=== PATIENT | female | born 1995 | race Two or more races ===

== ENCOUNTER → 2020-03-11 | Emergency (ER) | payer MEDICAID, OTHER ==
[~2020-03-11] VITALS: Ht 154.9 cm; Wt 59.9 kg
[~2020-03-11] MED LIST: MORPHINE SULFATE 4 MG/ML SYR/VIAL IV ONE; PANTOPRAZOLE 40 MG/10 ML VIAL INJ IV STA; PROCHLORPERAZINE EDISYLATE 5 MG/ML 2ML VIAL IV ONE; SODIUM CHLORIDE 0.9% 1,000 ML IVB ONE
[2020-03-11 10:30] LABS: Urine Bacteria MOD /hpf (None Seen); Urine Blood Negative /uL (Negative); Urine Specific Gravity 1.003 (1.001-1.035); Urine WBC 1 /hpf (0 - 5)
[2020-03-11 10:35] LABS: Basophils # (auto) 0 10 ^3/uL (0-0.2); Basophils % (auto) 0.3 % (0.0-2.0); Eosinophils # (auto) 0.1 10 ^3/uL (0-0.8); Eosinophils % (auto) 0.6 % (0.0-7.0); Hematocrit 41.6 % (36.0-46.0); Lymphocytes # (auto) 2.1 10 ^3/uL (0.4-5.4); Lymphocytes % (auto) 20.1 % (10.0-50.0); Mean Corpuscular Hemoglobin 28.8 pg (28.0-32.0); Mean Corpuscular Hgb Conc. 33.7 g/dL (32.0-36.0); Mean Corpuscular Volume 85.5 fL (80.0-100.0); Monocytes # (auto) 0.6 10 ^3/uL (0-1.3); Neutrophils # (auto) 7.7 10 ^3/uL (1.6-8.6); Nucleated Red Blood Cells % 0.1 %; Platelet Count (auto) 273 10^3/uL (140-450); Red Blood Cells 4.87 10^6/uL (4.0-5.20); Red Cell Distribution Width 13.7 % (11.8-14.3); White Blood Cell 10.6 10^3/uL (4.4-10.8)
[2020-03-11 10:44] LABS: Albumin 4.4 g/dL (3.4-5.0); Calcium 9.3 mg/dL (8.5-10.1); Potassium 3.6 mmol/L (3.5-5.1)
[2020-03-11 10:49] LABS: BUN/Creatinine Ratio 9.7; Bilirubin, Total 0.4 mg/dL (0.2-1.0); Total Protein 7.7 g/dL (6.4-8.2)
[2020-03-11 11:37] LABS: Alcohol, Urine < 3.0 mg/dL (0-10); Amphetamine Screen, Urine NEGATIVE (NEGATIVE); Barbiturate Scree,Urine NEGATIVE (NEGATIVE); Benzodiazephine Screen, Urine NEGATIVE (NEGATIVE); Cannabinoid Screen, Urine NEGATIVE (NEGATIVE); Cocaine Screen, Urine NEGATIVE (NEGATIVE); Opiate Scree,Urine NEGATIVE (NEGATIVE); Phencyclidine Screen, Urine NEGATIVE (NEGATIVE)
[2020-03-11 12:10] VITALS: BP 97/47
== END | disposition home or self-care (01) ==
LOC: ER 09:53
DX: K29.00 Acute gastritis without bleeding (principal)
CPT/HCPCS: 36415; 76705; 80053; 80307; 81001; 81025; 82150; 83690; 85025; 96361; 96374; 96375; 99284; C9113; J0780; J2270

== ENCOUNTER 2023-04-11 23:19 | Inpatient (IN) | payer MEDICAID ==
[~2023-04-11] VITALS: Ht 154.9 cm; Wt 58.6 kg
[2023-04-11] MEDS ORDERED: DONNATAL 5ml ORAL Elix (BELLADONNA ALK-PHENOBARB) PO ONE (23:45)
[2023-04-11] MEDS ORDERED: ONDANSETRON HCL 4 MG/2 ML VIAL IM ONE (23:45)
[2023-04-11] MEDS ORDERED: MAALOX PLUS or MAALOX 30 ML PO ONE (23:45)
[2023-04-11] MEDS ORDERED: LIDOCAINE VISCOUS 2% 15ML UD PO ONE (23:45)
[2023-04-11 23:57] LABS: Basophils # (auto) 0.1 10 ^3/uL (0-0.2); Basophils % (auto) 0.5 % (0.0-2.0); Eosinophils # (auto) 0.1 10 ^3/uL (0-0.8); Eosinophils % (auto) 0.5 % (0.0-7.0); Hematocrit 43.9 % (36.0-46.0); Lymphocytes # (auto) 2.5 10 ^3/uL (0.4-5.4); Lymphocytes % (auto) 16.1 % (10.0-50.0); Mean Corpuscular Hemoglobin 29.1 pg (28.0-32.0); Mean Corpuscular Hgb Conc. 34.2 g/dL (32.0-36.0); Mean Corpuscular Volume 85.2 fL (80.0-100.0); Monocytes # (auto) 0.8 10 ^3/uL (0-1.3); Neutrophils # (auto) 12.1 10 ^3/uL (1.6-8.6); Neutrophils % (auto) 77.9 % (37.0-80.0); Nucleated Red Blood Cells % 0.1 %; Red Blood Cells 5.15 10^6/uL (4.0-5.20); Red Cell Distribution Width 13.6 % (11.8-14.3); White Blood Cell 15.6 10^3/uL (4.4-10.8)
[2023-04-12 00:17] LABS: Alanine Aminotransferase 16 U/L (7-40); Alkaline Phosphatase 64 U/L (46-116); Anion Gap 11 (5-15); Aspartate Aminotransferase 17 U/L (13-40); BUN/Creatinine Ratio 10.3 (10.0-20.0); Bilirubin, Total 0.9 mg/dL (0.2-1.0); Blood Urea Nitrogen 7 mg/dL (9-23); Calcium 10.2 mg/dL (8.7-10.4); Carbon Dioxide 21 mmol/L (20-30); Chloride 106 mmol/L (98-107); Glucose 108 mg/dL (74-106); Lipase 58 U/L (12-53); Potassium 3.4 mmol/L (3.5-5.1); Sodium 138 mmol/L (136-145); Total Protein 7.9 g/dL (5.7-8.2)
[2023-04-12] MEDS ORDERED: MORPHINE SULFATE 4 MG/ML SYR/VIAL IV ONE ×2 (00:30→05:15)
[2023-04-12] MEDS ORDERED: ONDANSETRON HCL 4 MG/2 ML VIAL IV ONE (00:30)
[2023-04-12 01:30] VITALS: PULSE 80; RESP 18; O2SAT 98
[2023-04-12] MEDS ORDERED: HYDROmorphone HCL 2 MG/ML VL/or syr IV ONE (01:45)
[2023-04-12] MEDS ORDERED: SODIUM CHLORIDE 0.9% 1,000 ML IV ONE (01:45)
[2023-04-12 01:48] LABS: Urine Bacteria MANY /hpf (None Seen); Urine Blood Negative /uL (Negative); Urine Clarity Clear (Clear); Urine Color Yellow (Yellow); Urine Mucus FEW (None Seen); Urine Protein, UAD TRACE (Negative); Urine Specific Gravity 1.029 (1.001-1.035); Urine Urobilinogen Normal (Negative); Urine WBC 20 /hpf (0 - 5)
[2023-04-12] MEDS ORDERED: ZOFR4T PO ×2 (03:25)
[2023-04-12] MEDS ORDERED: DICY10CA PO ×2 (03:25)
[2023-04-12] MEDS ORDERED: PIPERACILLIN-TAZOB 3.375GM 100 ML IV ONE (05:15)
[2023-04-12] MEDS ORDERED: ONDANSETRON HCL 4 MG/2 ML VIAL IV PRN (06:30)
[2023-04-12 07:15] LABS: INR 1.14 (0.9-1.15); Partial Thromboplastin Time 28.6 SEC (24.5-34.5); Prothrombin Time 11.9 sec (9.3-11.8)
[2023-04-12 08:00] VITALS: PULSE 78; RESP 15; O2SAT 100
[2023-04-12] MEDS: SODIUM CHLORIDE 0.9% 1,000 ML IV SCH ×2 (08:54→17:53)
[2023-04-12] MEDS: PIPERACILLIN-TAZOB 3.375GM 100 ML IV SCH ×2 (11:47→17:53)
[2023-04-12] MEDS: MORPHINE SULFATE INJ 2 MG/ml SYRG IV PRN ×2 (11:57→16:07)
[2023-04-12 16:01] VITALS: BP 107/64; PULSE 84; RESP 16; TEMP 98.2; O2SAT 100
[2023-04-12 16:05] VITALS: PULSE 87; RESP 20; O2SAT 100
[2023-04-12 16:44] VITALS: BP 107/64; PULSE 87; RESP 20; TEMP 99.7; O2SAT 100
[2023-04-13 23:06] LABS: Chlamydia Trachomatis, NAA Negative (Negative); Neisseria gonorrhoeae, NAA Negative (Negative)
== END 2023-04-12 18:45 | disposition left against medical advice (07) | DRG 254 ==
LOC: ER 23:19 → OVERFLOW 04-12 06:32 → WEST WING 04-12 15:09
PROVIDERS: ADMIT Nurse Practitioner; ATTEND Internal Medicine
DX: K35.80 Unspecified acute appendicitis (principal); E66.01 Morbid (severe) obesity due to excess calories; K29.00 Acute gastritis without bleeding; N39.0 Urinary tract infection, site not specified; K21.9 Gastro-esophageal reflux disease without esophagitis; R10.829 Rebound abdominal tenderness, unspecified site; Z53.29 Procedure and treatment not carried out because of patient's decision for other reasons; Z82.49 Family history of ischemic heart disease and other diseases of the circulatory system; Z87.11 Personal history of peptic ulcer disease; Z68.24 Body mass index [BMI] 24.0-24.9, adult
CPT/HCPCS: 36415; 74177; 76830; 76856; 80053; 81001; 83690; 84702; 85025; 85610; 85730; G0378; J2405; J2543

== ENCOUNTER → 2024-11-12 | Outpatient (CLI) | payer MEDICAID ==
[2024-11-12 11:01] LABS: Hematocrit 36.8 % (36.0-46.0); Hemoglobin 12.5 g/dL (12.2-16.2); Mean Corpuscular Hemoglobin 28.8 pg (28.0-32.0); Mean Corpuscular Hgb Conc. 34.1 g/dL (32.0-36.0); Mean Corpuscular Volume 84.6 fL (80.0-100.0); Platelet Count (auto) 210 10^3/uL (140-450); Red Blood Cells 4.36 10^6/uL (4.0-5.20); White Blood Cell 10.1 10^3/uL (4.4-10.8)
[2024-11-12 11:43] LABS: Basophils % (manual) 0 (0.0-2.0); Blast Cells 0; Eosinophils % (manual) 0 (0-7); Metamyelocytes % 0; Myelocytes % 0; Promyelocytes % 0; Reactive Lymphocytes 0
[2024-11-12 11:47] LABS: Band Neutrophils % (manual) 1; Lymphocytes % (manual) 11 (10.0-50.0); Monocytes % (manual) 9 (0-12)
[2024-11-12 11:48] LABS: Platelet Estimate Adequate
[2024-11-13 23:07] LABS: Chlamydia Trachomatis, NAA Negative (Negative); Neisseria gonorrhoeae, NAA Negative (Negative)
== END | disposition home or self-care (01) ==
LOC: LAB 10:20
PROVIDERS: ATTEND Obstetrics & Gynecology
DX: Z34.00 Encounter for supervision of normal first pregnancy, unspecified trimester (principal); Z72.51 High risk heterosexual behavior; Z3A.00 Weeks of gestation of pregnancy not specified
CPT/HCPCS: 36415; 85007; 85027; 86780

== ENCOUNTER 2024-11-21 18:48 | Observation (INO) | payer MEDICAID ==
[2024-11-21] MEDS ORDERED: PREN-96 PO (19:34)
--- NOTE | 2024-11-21 19:39 | DVH ---
EXAM: US BIOPHYSICAL PROFILE HISTORY: ARRHYTHMIA COMPARISON: None TECHNIQUE: Multiple transabdominal real-time grayscale sonographic images through the gravid uterus of the fetus with duplex Doppler color flow and M-mode spectral analysis Findings/Impression: Single live intrauterine in vertex presentation with heart rate of 129 bpm. Biophysical profile was performed with 2 points for respirations, 2 points for movement, 2 points for tone and 2 points for amniotic fluid index. Biophysical profile score of 8/8. Amniotic fluid is within normal limits with GISSEL 14.9 cm and MVP 4.3 cm. Normal GISSEL (5-25 cm) Normal MVP (2-8 cm)
--- NOTE | 2024-11-21 21:15 | DVHDS2 ---
Physician Discharge Progress N Final Diagnosis: IUP at 36w 4d Reactive NST Normal Biophysical Profile (02/21) Operations or Procedures: Operations or Procedures S: 29yo G1,[address] for surveillance for arrhythmia. She reports normal movements, no UCs, no leakage of fluid, vaginal bleeding, MARTINS, vision changes or epigastric pain O: A&O x3 NAD. Afebrile, VSS Respiration: unlabored heart and lung sounds normal. Abdomen: Gravid, non-tender to palpation Extremities: No edema EFM Tracing reviewed FHR baseline 135bpm, moderate variability, Accelerations present, no deceleration BPP 02/21 NST reactive A: Normal BPP Reactive NST P: Continue Ursodiol and surveillance 1x/week (per consult with Dr Soriano) Keep Scheduled appt with MFM on 11/26/24, OB follow appointment with Dr Soriano on 11/27/24, Return for NST in 1 week; advised to seek healthcare sooner if needed. 3rd trimester emergency S&S, FMC, PTL & pre-eclampsia precautions reviewed with pt; advised to seek health care if any Consultations: Consultations Consulted with Dr. Soriano regarding frequency of surveillance. Condition on Discharge: Stable Disposition: Home Discharge Instructions: Diet: Regular Diet comment: Balanced diet Activity: No Restrictions, As Tolerated Activity comment: Balance activity with rest periods Follow Up/Referral: KEEP CURRENT APPOINTMENT WITH DR SORIANO. RETURN TO [facility] FOR NON-STRESS TEST AND ULTRASOUND ON 11/28/24 AT 7PM Medications: CONTINUE TAKING VITAMINS DAILY. Follow Up Care: Discharge Statement: "Patient was advised to return to the ER or call 911 if any headaches, dizziness, shortness of breath, chest pain, abdominal pain, bleeding, fevers, or worsening of medical condition. Patient was counseled about treatment plan, medications, possible side effects, patient�verbalized understanding. All questions were answered to the best of my ability. This discharge took greater then 30 minutes in planning, reviewing documentation, counseling the patient, and discussing with other team members." Visit Coding OBGYN Date of Service: November 21, 2024 Billing Provider: ARLEY SERRANO CNM STRAW HAT PLUNGER OPERATOR Common Visit Codes: 47628-SQF/OBS SAME DATE (HIGH) STRAW HAT PLUNGER OPERATOR Procedure Codes: 74421-19- NON-STRESS TEST ARLEY SERRANO [facility] November 21, 2024 21:15
== END 2024-11-21 20:54 | disposition home or self-care (01) ==
LOC: LDRP 18:48
PROVIDERS: ADMIT Obstetrics & Gynecology; ATTEND Obstetrics & Gynecology
DX: O62.9 Abnormality of forces of labor, unspecified (principal); Z3A.36 36 weeks gestation of pregnancy; Z79.899 Other long term (current) drug therapy; Z98.890 Other specified postprocedural states
CPT/HCPCS: 59025; 76819; 81002; 94760; G0378

== ENCOUNTER 2024-11-28 18:40 | Observation (INO) | payer MEDICAID ==
[~2024-11-28] VITALS: Ht 154.9 cm; Wt 83.0 kg
[~2024-11-28 18:40] MED LIST changes: -MORPHINE SULFATE 4 MG/ML SYR/VIAL IV ONE; -PANTOPRAZOLE 40 MG/10 ML VIAL INJ IV STA; +PREN-96 PO; -PROCHLORPERAZINE EDISYLATE 5 MG/ML 2ML VIAL IV ONE; -SODIUM CHLORIDE 0.9% 1,000 ML IVB ONE
--- NOTE | 2024-11-28 19:25 | DVH ---
ULTRASOUND BIOPHYSICAL PROFILE CLINICAL HISTORY: arrhythmias COMPARISON: US BIOPHYSICAL PROFILE on DOS: 11/21/24 TECHNIQUE: Real-time grayscale, color flow and M-mode imaging of the gravid uterus is performed. FINDINGS: Single living intrauterine gestation. Vertex positioning. heart rate 127 beats per minute. Amniotic fluid index: 12.3 cm Biophysical profile: 8 out of 8. (2 breathing, 2 activity, 2 tone, 2 GISSEL) IMPRESSION: Biophysical profile score 8 out of 8.
--- NOTE | 2024-12-05 12:25 | DVHDS2 ---
Physician Discharge Progress N Final Diagnosis: labor check Operations or Procedures: Operations or Procedures nst reactive reviewed,sono Condition on Discharge: Good Disposition: Home Discharge Instructions: Diet: Regular Activity: See Comment Medications: na Follow Up Care: Specialist: 3d Discharge Statement: "Patient was advised to return to the ER or call 911 if any headaches, dizziness, shortness of breath, chest pain, abdominal pain, bleeding, fevers, or worsening of medical condition. Patient was counseled about treatment plan, medications, possible side effects, patientverbalized understanding. All questions were answered to the best of my ability. This discharge took greater then 30 minutes in planning, reviewing documentation, counseling the patient, and discussing with other team members." Visit Coding OBGYN Date of Service: November 28, 2024 Billing Provider: GUNNER MICHEL DO QUARTER INSPECTOR Common Visit Codes: 29607-[id number] OBS CARE (HIGH) QUARTER INSPECTOR Procedure Codes: 88910-75- NON-STRESS TEST GUNNER MICHEL DO December 05, 2024 12:25
== END 2024-11-28 19:49 | disposition home or self-care (01) ==
LOC: LDRP 18:40
PROVIDERS: ADMIT Obstetrics & Gynecology; ATTEND Obstetrics & Gynecology
DX: Z36.89 Encounter for other specified antenatal screening (principal); Z3A.37 37 weeks gestation of pregnancy; Z79.899 Other long term (current) drug therapy
CPT/HCPCS: 59025; 76819; 81002; 94760; G0378

== ENCOUNTER 2024-12-05 18:40 | Observation (INO) | payer MEDICAID ==
[~2024-12-05] VITALS: Ht 154.9 cm; Wt 83.5 kg
--- NOTE | 2024-12-05 19:23 | DVH ---
BIOPHYSICAL PROFILE HISTORY: arrhythmia Comparison Study: US BIOPHYSICAL PROFILE on DOS: 11/28/24 TECHNIQUE: Multiple real-time grayscale sonographic images through the gravid uterus of the fetus wi th duplex Doppler color flow and M-mode spectral analysis FINDINGS: Heart rate measures 132 beats per minute. Amniotic fluid index measures 11.21 cm. Gestational age ca lculating at 38 weeks and 3 days with estimated due date 12/16/24. position vertex Right lateral placenta location. No placenta previa or abruption. Normal biophysical profile score. IMPRESSION: 1. Biophysical profile score: 8
--- NOTE | 2024-12-05 20:45 | DVHDS2 ---
Physician Discharge Progress N Final Diagnosis: IUP at 38.3 weeks Secondary Diagnosis: NST for arrythmia Operations or Procedures: Operations or Procedures NST: Reactive Category 1 tracing Other Interventions Other Interventions BPP: 02/21 with an GISSEL of 11.21 cm Commentary: Commentary Denies any problems or complaints. VE: Deferred Condition on Discharge: Stable Disposition: Home Discharge Instructions: Diet: Regular Activity: No Restrictions, As Tolerated Follow Up/Referral: Keep regular clinic appt as scheduled Medications: Continue all previously prescribed meds as ordered Follow Up Care: Primary Care Provider: Dr Soriano Discharge Statement: "Patient was advised to return to the ER or call 911 if any headaches, dizziness, shortness of breath, chest pain, abdominal pain, bleeding, fevers, or worsening of medical condition. Patient was counseled about treatment plan, medications, possible side effects, patientverbalized understanding. All questions were answered to the best of my ability. This discharge took greater then 30 minutes in planning, reviewing documentation, counseling the patient, and discussing with other team members." Discharge Care Plan Instructions Labor precautions and FKC instructions given Visit Coding OBGYN Date of Service: December 05, 2024 Billing Provider: WALI HYDE CNM FLAT DRIER Common Visit Codes: [id number] CARE DISCHARGE WALI HYDE CNM December 05, 2024 20:45
== END 2024-12-05 19:47 | disposition home or self-care (01) ==
LOC: LDRP 18:40
PROVIDERS: ADMIT Obstetrics & Gynecology; ATTEND Obstetrics & Gynecology
DX: O99.413 Diseases of the circulatory system complicating pregnancy, third trimester (principal); Z3A.38 38 weeks gestation of pregnancy; Z79.899 Other long term (current) drug therapy
CPT/HCPCS: 59025; 76819; 81002; 94760; G0378

== ENCOUNTER 2024-12-08 17:55 | Observation (INO) | payer MEDICAID ==
[~2024-12-08] VITALS: Ht 154.9 cm; Wt 83.5 kg
--- NOTE | 2024-12-09 05:48 | DVHDS2 ---
Discharge Summary Date of Admission December 08, 2024 at 17:55 Date of Discharge: December 08, 2024 Admitting Diagnosis Patient here for evaluation secondary to decreased movement Brief Hx & Hospital Course: 38-6/7 weeks with care here for they thank you Condition at Discharge: Fair Final Diagnosis/Problems List Reassuring heart tones 30+ weeks due with history of a regular heart rate thankfollow up Discharge Disposition: Home Discharge Instruct/Medications Diet: Regular Activity: Light activity (Kick counts labor precautions) Follow Up/Referral: As scheduled Discharge Statement: "Patient was advised to return to the ER or call 911 if any headaches, dizziness, shortness of breath, chest pain, abdominal pain, bleeding, fevers, or worsening of medical condition. Patient was counseled about treatment plan, medications, possible side effects, patientverbalized understanding. All questions were answered to the best of my ability. This discharge took greater then 30 minutes in planning, reviewing documentation, counseling the patient, and discussing with other team members." ASSESSMENT ASSESSMENT Assessment Visit Coding OBGYN Date of Service: December 08, 2024 Billing Provider: DANAY ANGULO DO WEATHERIZATION AND HOUSING INSPECTOR Common Visit Codes: 73296-BNF/OBS SAME DATE (LOW), 14079-VSJ/OBS SAME DATE (MOD), 35498-FJR/OBS SAME DATE (HIGH) WEATHERIZATION AND HOUSING INSPECTOR Procedure Codes: 05007-24- NON-STRESS TEST DANAY ANGULO DO December 09, 2024 05:48
== END 2024-12-08 18:48 | disposition home or self-care (01) ==
LOC: LDRP 17:55
PROVIDERS: ADMIT Obstetrics & Gynecology; ATTEND Obstetrics & Gynecology
DX: O36.8130 Decreased fetal movements, third trimester, not applicable or unspecified (principal); O99.413 Diseases of the circulatory system complicating pregnancy, third trimester; Z3A.38 38 weeks gestation of pregnancy; Z79.899 Other long term (current) drug therapy
CPT/HCPCS: 59025; 81002; 94760; G0378

== ENCOUNTER 2024-12-12 18:33 | Observation (INO) | payer MEDICAID ==
[~2024-12-12] VITALS: Ht 154.9 cm; Wt 84.4 kg
--- NOTE | 2024-12-12 19:14 | DVH ---
BIOPHYSICAL PROFILE HISTORY: arrhythmia TECHNIQUE: Multiple transabdominal real-time grayscale sonographic images through the gravid uterus of the fetus with duplex Doppler color flow and M-mode spectral analysis FINDINGS: BIOPHYSICAL PROFILE: breathing score: 2 movement score: 2 tone score: 2 Quantitative GISSEL score: 2 (GISSEL: 12.8 Cm.) Total score: 8 The cervix not well visualized. Single live fetus in vertex presentation. heart rate 138 beats per minute. Right lateral placenta without previa or abruption IMPRESSION: Biophysical profile score: 8
--- NOTE | 2024-12-13 22:38 | DVHDS2 ---
Physician Discharge Progress N Final Diagnosis: arryhtmia 39wks Operations or Procedures: Operations or Procedures nst reactive reviwed,sono Condition on Discharge: Good Disposition: Home Discharge Instructions: Diet: Regular Activity: No Restrictions, As Tolerated Medications: na Follow Up Care: Specialist: 3d Discharge Statement: "Patient was advised to return to the ER or call 911 if any headaches, dizziness, shortness of breath, chest pain, abdominal pain, bleeding, fevers, or worsening of medical condition. Patient was counseled about treatment plan, medications, possible side effects, patientverbalized understanding. All questions were answered to the best of my ability. This discharge took greater then 30 minutes in planning, reviewing documentation, counseling the patient, and discussing with other team members." Visit Coding OBGYN Date of Service: December 12, 2024 Billing Provider: GUNNER MICHEL DO PHOTO SPECIALIST Common Visit Codes: [id number] OBS CARE (HIGH) PHOTO SPECIALIST Procedure Codes: 44849-77- NON-STRESS TEST GUNNER MICHEL DO December 13, 2024 22:38
== END 2024-12-12 19:42 | disposition home or self-care (01) ==
LOC: LDRP 18:33
PROVIDERS: ADMIT Obstetrics & Gynecology; ATTEND Obstetrics & Gynecology
DX: O36.8330 Maternal care for abnormalities of the fetal heart rate or rhythm, third trimester, not applicable or unspecified (principal); Z3A.39 39 weeks gestation of pregnancy; Z79.899 Other long term (current) drug therapy
CPT/HCPCS: 59025; 76819; 81002; 94760; G0378

== ENCOUNTER 2024-12-16 07:16 | Observation (INO) | payer MEDICAID ==
--- NOTE | 2024-12-16 14:16 | DVH ---
BIOPHYSICAL PROFILE HISTORY: Term, arrythmia TECHNIQUE: Multiple transabdominal real-time grayscale sonographic images through the gravid uterus of the fetus with duplex Doppler color flow and M-mode spectral analysis FINDINGS: BIOPHYSICAL PROFILE: breathing score: 2 movement score: 2 tone score: 2 Quantitative GISSEL score: 2 (GISSEL: 18.8 Cm.) Total score: 8 The cervix not well visualized. Single live fetus in cephalic presentation. heart rate 138 beats per minute. Right lateral placenta without previa or abruption IMPRESSION: Biophysical profile score: 8/8
--- NOTE | 2024-12-16 23:58 | DVHDS2 ---
Physician Discharge Progress N Final Diagnosis: arrythmia 40wks Operations or Procedures: Operations or Procedures nst reactive reviwed,sono Condition on Discharge: Good Disposition: Home Discharge Instructions: Diet: Regular Activity: No Restrictions, As Tolerated Medications: na Follow Up Care: Specialist: 2d Discharge Statement: "Patient was advised to return to the ER or call 911 if any headaches, dizziness, shortness of breath, chest pain, abdominal pain, bleeding, fevers, or worsening of medical condition. Patient was counseled about treatment plan, medications, possible side effects, patientverbalized understanding. All questions were answered to the best of my ability. This discharge took greater then 30 minutes in planning, reviewing documentation, counseling the patient, and discussing with other team members." Visit Coding OBGYN Date of Service: Dec 16, 2024 Billing Provider: GUNNER MICHEL DO VERIFICATION ENGINEER Common Visit Codes: 97631-ASLDSEE OBS CARE (HIGH) VERIFICATION ENGINEER Procedure Codes: 53958-16- NON-STRESS TEST GUNNER MICHEL DO Dec 16, 2024 23:58
== END 2024-12-16 14:56 | disposition home or self-care (01) ==
LOC: LDRP 13:18
PROVIDERS: ADMIT Obstetrics & Gynecology; ATTEND Obstetrics & Gynecology
DX: O36.8130 Decreased fetal movements, third trimester, not applicable or unspecified (principal); Z3A.40 40 weeks gestation of pregnancy; Z79.899 Other long term (current) drug therapy; Z98.890 Other specified postprocedural states
CPT/HCPCS: 59025; 76819; 81002; 94760; G0378

== ENCOUNTER 2024-12-17 18:30 | Inpatient (IN) | payer MEDICAID ==
[~2024-12-17] VITALS: Ht 154.9 cm; Wt 86.2 kg
[2024-12-17] MEDS ORDERED: NALBUPHINE HCL 10 MG/1ml INJECTION IV PRN (19:15)
[2024-12-17] MEDS ORDERED: miSOPROStol 50 MCG per PRE-CUT 1/2 TAB PO PRN (19:15)
[2024-12-17 19:45] LABS: Basophils # (auto) 0 10 ^3/uL (0-0.2); Basophils % (auto) 0.2 % (0.0-2.0); Eosinophils # (auto) 0.1 10 ^3/uL (0-0.8); Eosinophils % (auto) 0.5 % (0.0-7.0); Hematocrit 36.7 % (36.0-46.0); Hemoglobin 12.3 g/dL (12.2-16.2); Lymphocytes # (auto) 1.5 10 ^3/uL (0.4-5.4); Mean Corpuscular Hemoglobin 28.5 pg (28.0-32.0); Mean Corpuscular Hgb Conc. 33.7 g/dL (32.0-36.0); Mean Corpuscular Volume 84.6 fL (80.0-100.0); Monocytes # (auto) 0.7 10 ^3/uL (0-1.3); Monocytes % (auto) 6.1 % (0.0-12.0); Neutrophils # (auto) 8.5 10 ^3/uL (1.6-8.6); Neutrophils % (auto) 79.2 % (37.0-80.0); Platelet Count (auto) 205 10^3/uL (140-450); Red Blood Cells 4.33 10^6/uL (4.0-5.20); Red Cell Distribution Width 15.7 % (11.8-14.3); White Blood Cell 10.7 10^3/uL (4.4-10.8)
[2024-12-17 19:57] LABS: Urine Bacteria FEW /hpf (None Seen); Urine Blood Negative /uL (Negative); Urine Clarity Turbid (Clear); Urine Color Yellow (Yellow); Urine Mucus FEW (None Seen); Urine Protein, UAD TRACE (Negative); Urine Squamous Epithelial Cell FEW /hpf (<5); Urine Urobilinogen Normal (Negative); Urine WBC 3 /HPF (0-5); Urine pH 6.5 (5.0-9.0)
[2024-12-17 19:59] LABS: INR 0.95 (0.9-1.15); Partial Thromboplastin Time 27.3 SEC (24.5-34.5); Prothrombin Time 10.1 sec (9.3-11.8)
[2024-12-17] MEDS ORDERED: TERBUTALINE SULFATE 1 MG/ML 1ML VIAL SC PRN (20:00)
[2024-12-17 20:02] LABS: Alanine Aminotransferase 18 U/L (7-40); Albumin 4.2 g/dL (3.2-4.8); Anion Gap 13 (5-15); Aspartate Aminotransferase 21 U/L (13-40); BUN/Creatinine Ratio 13.3 (10.0-20.0); Bilirubin, Total 0.4 mg/dL (0.2-1.0); Carbon Dioxide 20 mmol/L (20-31); Potassium 3.6 mmol/L (3.5-5.1); Sodium 141 mmol/L (136-145); Total Protein 6.6 g/dL (5.7-8.2)
[2024-12-17 20:03] LABS: Alkaline Phosphatase 194 U/L (46-116); Blood Urea Nitrogen 8 mg/dL (9-23); Calcium 10.5 mg/dL (8.7-10.4); Chloride 108 mmol/L (98-107); Glucose 110 mg/dL (74-106)
[2024-12-17 20:09] LABS: Amphetamine Screen, Urine Neg (NEGATIVE); Barbiturate Scree,Urine Neg (NEGATIVE); Benzodiazephine Screen, Urine Neg (NEGATIVE); Cannabinoid Screen, Urine Neg (NEGATIVE); Cocaine Screen, Urine Neg (NEGATIVE); Opiate Scree,Urine Neg (NEGATIVE); Phencyclidine Screen, Urine Neg (NEGATIVE)
[2024-12-17] MEDS: LACTATED RINGER'S 1,000 ML IV SCH (20:43)
[2024-12-17 21:07] LABS: Hepatitis B Surface Antigen Negative (Negative); Hepatitis C Antibody Negative (Negative)
[2024-12-17] MEDS: LACT. RINGERS/OXYTOCIN 20UNITS 1,000 ML IV SCH (21:42)
--- NOTE | 2024-12-17 21:56 | DVHHP2 ---
OB CC & HPI Date Date of Admission: Dec 17, 2024 Patient Identification: : 1 Para: 0 EDC: Dec 16, 2024 EGA: 40.1wks Chief Complaints: Reason for admission: induction of labor Indication for induction: post dates ( arrhythmia) History of Present Complaints 29yo IUP@40.1wks presents for scheduled IOL today. Denies UCs/LOF/VB/MARTINS/vision changes/RUQ pain. Endorses +FM. PNC: Routine PNC at [facility] OB, adequate visits, PNC complicated by arrhythmia. GTT wnl, dating based on LMP c/w 29w4d sono, GBS negative. Past Medical History Cardiac: No pertinent Hx Pulmonary: No pertinent Hx Central Nervous System: No pertinent Hx GI: No pertinent Hx Hemotology/Oncology: No pertinent Hx Hepatobiliary: No pertinent Hx Psychiatric: No pertinent Hx Musculoskeletal: No pertinent Hx Rheumotologic: No pertinent Hx Infectious Disease: No peritnent Hx ENT: No pertinent Hx Renal/: No pertinent Hx Endocrine: No pertinent Hx Dermatology: No pertinent Hx Past Surgical History: Appendectomy (2022) OB History OB History Care: Good Care Ultrasounds: Normal mid trimester US Obstetrical Complications: Other ( arrhythmia) Medical Complications: None Allergies: Coded Allergies: NO KNOWN ALLERGIES (Unverified , 03/11/20) Home Meds Reported Medications Vit W/ Ferrous Fumara ( One Daily) Daily Tab, 1 TAB PO DAILY, #90 TAB 3 Refills 11/21/24 Current Medications Current Medications Medications (Trade) Dose Ordered Sig/Amrik Route PRN Reason Start Time Stop Time Status Last Admin Lactated Ringer's 1,000 ml @ 125 mls/hr Q8H IV 12/17/24 19:15 12/17/24 20:43 Nalbuphine HCl (Nubain) 10 mg Q4HP PRN IV MODERATE PAIN (4-6 PAIN SCALE) 12/17/24 19:15 Witch Sanam (Tucks) 1 pad PRN PRN TOP PERINEAL AREA DISCOMFORT 12/17/24 19:15 Sodium Lauryl Sulfate (Phisoderm) 240 ml PRN PRN TOP PERINEAL AREA DISCOMFORT 12/17/24 19:15 Benzocaine (Dermoplast) 1 applic PRN PRN TOP PERINEAL AREA DISCOMFORT 12/17/24 19:15 Misoprostol (Cytotec) 50 mcg Q4HPRN PRN PO CERVICAL RIPENING 12/17/24 19:15 Lidocaine HCl (Xylocaine) 20 ml ONCE PRN IJ PERINEAL AREA DISCOMFORT 12/17/24 19:15 Oxytocin 1,000 ml @ 6 ml/hr Q24H IV 12/17/24 20:00 12/17/24 21:42 Terbutaline Sulfate (Brethine Inj) 0.25 mg ONCE PRN SC Uterine tachysystole 12/17/24 20:00 Family & Social History Family/Social History Past Family/Social History: mother: HTN Blood Type: O+ Rubella: immune RPR/VDRL: Negative GBS Status: Negative HBsAG: Negative Review of Systems Constitutional: No symptom reported Ears, Nose, & Throat: No symptom reported Eyes: No symptom reported Pulmonary/Respiratory: No symptom reported Cardiovascular: No symptom reported Gastrointestinal: No symptom reported Genitourinary: No symptom reported Musculoskeletal: No symptom reported Skin: No symptom reported Psychiatric: No symptom reported Endocrine: No symptom reported Hemotologic/Lymphatic: No symptom reported OB Admission Exam Physical Exam Vitals: VSS, see chart EFW in office today: 8lbs 13oz, vertex HEENT: TMs Normal, Fontanelles Normal, Nasal Mucosa Normal, Eyes non-injected, Oropharynx Normal, PERRLA, Moist Membranes, EOMI Heart: Rhythm Normal Lungs: Clear Abdomen: Gravid Extremities: Normal Reflexes: Normal Pelvic Exam: SVE by RN: 3/70/-2, intact, vertex Membranes: Intact Heart Rate: 120's Accelerations: Accelerations Present Decelerations: No Decelerations Senior Care Variability: Average (6-25) Contractions on Admission: < 5 Minutes Apart Intensity: Moderate OB Plan Plan Admitting Diagnosis: Induction of labor Plan: Induction Induction Methd: Pitocin protocol Other Plan: A: 29yo IUP@40.1wks Induction of Labor arrhythmia Category I EFM Intact Membranes GBS negative P: Admit to L&D Informed consent obtained Discussed risks, benefits, alternatives of IOL with pt. Pt consents to IOL with IV pitocin. monitoring per order Routine labs ordered Pain mgmt PRN Frequent position changes in and out of bed encouraged Limit SVE unless necessary Intrauterine resuscitation PRN Anticipate CNM will consult with Dr. Soriano PRN Visit Coding OBGYN Date of Service: Dec 18, 2024 Billing Provider: AVILA BRUCE CNM HEARING STENOGRAPHER Common Visit Codes: [id number] INP/OBS CARE (HIGH) HEARING STENOGRAPHER Procedure Codes: 91115-62- NON-STRESS TEST AVILA BRUCE CNM Dec 17, 2024 21:56
--- NOTE | 2024-12-18 02:15 | DVHPN2 ---
[facility] Labor Progress Note Date and Time Seen Date Seen: Dec 18, 2024 Time Seen: 02:10 Subjective Patient reports: No new complaints Subjective Comment Pt declines SVE now Objective Vital Signs VSS, see chart Laboratory Tests Test 12/17/24 19:20 Range/Units White Blood Count 10.7 4.4-10.8 10^3/uL Red Blood Count 4.33 4.0-5.20 10^6/uL Hemoglobin 12.3 12.2-16.2 g/dL Hematocrit 36.7 36.0-46.0 % Mean Corpuscular Volume 84.6 80.0-100.0 fL Mean Corpuscular Hemoglobin 28.5 28.0-32.0 pg Mean Corpuscular Hemoglobin Concent 33.7 32.0-36.0 g/dL Red Cell Distribution Width 15.7 H 11.8-14.3 % Platelet Count 205 140-450 10^3/uL Mean Platelet Volume 7.9 6.9-10.8 fL Neutrophils (%) (Auto) 79.2 37.0-80.0 % Lymphocytes (%) (Auto) 14.0 10.0-50.0 % Monocytes (%) (Auto) 6.1 0.0-12.0 % Eosinophils (%) (Auto) 0.5 0.0-7.0 % Basophils (%) (Auto) 0.2 0.0-2.0 % Neutrophils # (Auto) 8.5 1.6-8.6 10 ^3/uL Lymphocytes # (Auto) 1.5 0.4-5.4 10 ^3/uL Monocytes # (Auto) 0.7 0-1.3 10 ^3/uL Eosinophils # (Auto) 0.1 0-0.8 10 ^3/uL Basophils # (Auto) 0 0-0.2 10 ^3/uL Nucleated Red Blood Cells 0.0 % Prothrombin Time 10.1 9.3-11.8 sec Prothrombin Time INR 0.95 0.9-1.15 Activated Partial Thromboplast Time 27.3 24.5-34.5 SEC Urine Color Yellow Yellow Urine Clarity Turbid H Clear Urine pH 6.5 5.0-9.0 Urine Specific [place] 1.020 1.001-1.035 Urine Protein Trace H Negative Urine Ketones Negative Negative Urine Blood Negative Negative /uL Urine Nitrite Negative Negative Urine Bilirubin Negative Negative Urine Urobilinogen Normal Negative mg/dL Urine Leukocyte Esterase 1+ Negative /uL Urine RBC 2 0 - 4 /hpf Urine Microscopic WBC 3 0-5 /HPF Urine Squamous Epithelial Cells Few <5 /hpf Urine Calcium Oxalate Crystals Few None Seen Urine Bacteria Few H None Seen /hpf Urine Mucus Few None Seen Urine Glucose Normal Normal mg/dL Sodium Level 141 136-145 mmol/L Potassium Level 3.6 3.5-5.1 mmol/L Chloride Level 108 H 98-107 mmol/L Carbon Dioxide Level 20 20-31 mmol/L Anion Gap 13 5-15 Blood Urea Nitrogen 8 L 9-23 mg/dL Creatinine 0.60 0.550-1.02 mg/dL Glomerular Filtration Rate Calc 126 >90 mL/min BUN/Creatinine Ratio 13.3 10.0-20.0 Serum Glucose 110 H 74-106 mg/dL Calcium Level 10.5 H 8.7-10.4 mg/dL Total Bilirubin 0.4 0.2-1.0 mg/dL Aspartate Amino Transferase (AST) 21 13-40 U/L Alanine Aminotransferase (ALT) 18 7-40 U/L Alkaline Phosphatase 194 H 46-116 U/L Total Protein 6.6 5.7-8.2 g/dL Albumin 4.2 3.2-4.8 g/dL Urine Opiates Screen Neg NEGATIVE Urine Fentanyl Screen Neg NEGATIVE Urine Barbiturates Screen Neg NEGATIVE Urine Phencyclidine Screen Neg NEGATIVE Urine Amphetamines Screen Neg NEGATIVE Urine Benzodiazepines Screen Neg NEGATIVE Urine Cocaine Screen Neg NEGATIVE Urine Cannabinoids Screen Neg NEGATIVE Treponema pallidum Antibody Non-reactive Negative Hepatitis B Surface Antigen Negative Negative Hepatitis C Antibody Negative Negative Monitoring Method Monitoring Method: External Heart Rate Heart Rate Baseline: 125 Heart Rate Variability: Moderate Presence of FHR Accelerations: Yes Presence of FHR Decelerations: No Changes in Trends of Patterns: No Are all 5 Components of the FH: Yes Contractions Contractions Frequency: Other (q1-3 min) Duration of Contraction: 80 Contractions Intensity: Moderate Contractions Resting Tone: Relaxed Membranes Membranes: Intact Vaginal Exam Vag Exam Deferred: Yes Medications Medications - Pitocin: Yes (10 mu) Medications - Pain Medications: PRN Medication - Epidural: No Lab Results Lab Results Current Medications Medications (Trade) Dose Ordered Sig/Amrik Start Time Stop Time Status Last Admin Dose Admin Lactated Ringer's 1,000 ml @ 125 mls/hr Q8H 12/17/24 19:15 12/17/24 20:43 125 MLS/HR Nalbuphine HCl (Nubain) 10 mg Q4HP PRN 12/17/24 19:15 Witch Sanam (Tucks) 1 pad PRN PRN 12/17/24 19:15 Sodium Lauryl Sulfate (Phisoderm) 240 ml PRN PRN 12/17/24 19:15 Benzocaine (Dermoplast) 1 applic PRN PRN 12/17/24 19:15 Misoprostol (Cytotec) 50 mcg Q4HPRN PRN 12/17/24 19:15 Lidocaine HCl (Xylocaine) 20 ml ONCE PRN 12/17/24 19:15 Oxytocin 1,000 ml @ 6 ml/hr Q24H 12/17/24 20:00 12/17/24 21:42 6 ML/HR Terbutaline Sulfate (Brethine Inj) 0.25 mg ONCE PRN 12/17/24 20:00 Oxytocin 500 ml @ 999 mls/hr Q31M ONCE 12/17/24 20:00 12/17/24 20:30 DC Oxytocin 500 ml @ 125 mls/hr Q4H ONCE 12/17/24 20:30 12/18/24 00:29 DC Laboratory Tests Test 12/17/24 19:20 Range/Units White Blood Count 10.7 4.4-10.8 10^3/uL Red Blood Count 4.33 4.0-5.20 10^6/uL Hemoglobin 12.3 12.2-16.2 g/dL Hematocrit 36.7 36.0-46.0 % Mean Corpuscular Volume 84.6 80.0-100.0 fL Mean Corpuscular Hemoglobin 28.5 28.0-32.0 pg Mean Corpuscular Hemoglobin Concent 33.7 32.0-36.0 g/dL Red Cell Distribution Width 15.7 H 11.8-14.3 % Platelet Count 205 140-450 10^3/uL Mean Platelet Volume 7.9 6.9-10.8 fL Neutrophils (%) (Auto) 79.2 37.0-80.0 % Lymphocytes (%) (Auto) 14.0 10.0-50.0 % Monocytes (%) (Auto) 6.1 0.0-12.0 % Eosinophils (%) (Auto) 0.5 0.0-7.0 % Basophils (%) (Auto) 0.2 0.0-2.0 % Neutrophils # (Auto) 8.5 1.6-8.6 10 ^3/uL Lymphocytes # (Auto) 1.5 0.4-5.4 10 ^3/uL Monocytes # (Auto) 0.7 0-1.3 10 ^3/uL Eosinophils # (Auto) 0.1 0-0.8 10 ^3/uL Basophils # (Auto) 0 0-0.2 10 ^3/uL Nucleated Red Blood Cells 0.0 % Prothrombin Time 10.1 9.3-11.8 sec Prothrombin Time INR 0.95 0.9-1.15 Activated Partial Thromboplast Time 27.3 24.5-34.5 SEC Urine Color Yellow Yellow Urine Clarity Turbid H Clear Urine pH 6.5 5.0-9.0 Urine Specific [place] 1.020 1.001-1.035 Urine Protein Trace H Negative Urine Ketones Negative Negative Urine Blood Negative Negative /uL Urine Nitrite Negative Negative Urine Bilirubin Negative Negative Urine Urobilinogen Normal Negative mg/dL Urine Leukocyte Esterase 1+ Negative /uL Urine RBC 2 0 - 4 /hpf Urine Microscopic WBC 3 0-5 /HPF Urine Squamous Epithelial Cells Few <5 /hpf Urine Calcium Oxalate Crystals Few None Seen Urine Bacteria Few H None Seen /hpf Urine Mucus Few None Seen Urine Glucose Normal Normal mg/dL Sodium Level 141 136-145 mmol/L Potassium Level 3.6 3.5-5.1 mmol/L Chloride Level 108 H 98-107 mmol/L Carbon Dioxide Level 20 20-31 mmol/L Anion Gap 13 5-15 Blood Urea Nitrogen 8 L 9-23 mg/dL Creatinine 0.60 0.550-1.02 mg/dL Glomerular Filtration Rate Calc 126 >90 mL/min BUN/Creatinine Ratio 13.3 10.0-20.0 Serum Glucose 110 H 74-106 mg/dL Calcium Level 10.5 H 8.7-10.4 mg/dL Total Bilirubin 0.4 0.2-1.0 mg/dL Aspartate Amino Transferase (AST) 21 13-40 U/L Alanine Aminotransferase (ALT) 18 7-40 U/L Alkaline Phosphatase 194 H 46-116 U/L Total Protein 6.6 5.7-8.2 g/dL Albumin 4.2 3.2-4.8 g/dL Urine Opiates Screen Neg NEGATIVE Urine Fentanyl Screen Neg NEGATIVE Urine Barbiturates Screen Neg NEGATIVE Urine Phencyclidine Screen Neg NEGATIVE Urine Amphetamines Screen Neg NEGATIVE Urine Benzodiazepines Screen Neg NEGATIVE Urine Cocaine Screen Neg NEGATIVE Urine Cannabinoids Screen Neg NEGATIVE Treponema pallidum Antibody Non-reactive Negative Hepatitis B Surface Antigen Negative Negative Hepatitis C Antibody Negative Negative Assessment Assessment 29yo IUP@40.2wks Induction of Labor arrhythmia Category I EFM Intact Membranes GBS negative Plan Plan Continue with IV pitocin per protocol monitoring per order Pain mgmt PRN Frequent position changes in and out of bed encouraged Limit SVE unless necessary Intrauterine resuscitation PRN Anticipate CNM will consult with Dr. Soriano PRN Plan discussed with: Patient, Other (family) Visit Coding OBGYN Date of Service: Dec 18, 2024 Billing Provider: AVILA BRUCE CNM PUTTY MIXER Common Visit Codes: [id number] INP/OBS CARE(HIGH) AVIAL BRUCE CNM Dec 18, 2024 02:15
[2024-12-18 09:18] LABS: Protein, Urine 27.2 mg/dL (1-14)
[2024-12-18 09:21] LABS: Creatinine, Urine 116.75 mg/dL (30.0-125.0); Urine Protein/Creatinine Ratio 0.23
--- NOTE | 2024-12-18 10:26 | DVHPN2 ---
Chief Complaints Patient reports: No new complaints Nursing reports: No new complaints Objective Medications Current Medications Medications (Trade) Dose Ordered Sig/Amrik Route PRN Reason Start Time Stop Time Status Last Admin Benzocaine (Dermoplast) 1 applic PRN PRN TOP PERINEAL AREA DISCOMFORT 12/17/24 19:15 Lactated Ringer's 1,000 ml @ 125 mls/hr Q8H IV 12/17/24 19:15 12/17/24 20:43 Lidocaine HCl (Xylocaine) 20 ml ONCE PRN IJ PERINEAL AREA DISCOMFORT 12/17/24 19:15 Misoprostol (Cytotec) 50 mcg Q4HPRN PRN PO CERVICAL RIPENING 12/17/24 19:15 Nalbuphine HCl (Nubain) 10 mg Q4HP PRN IV MODERATE PAIN (4-6 PAIN SCALE) 12/17/24 19:15 Oxytocin 1,000 ml @ 6 ml/hr Q24H IV 12/17/24 20:00 12/17/24 21:42 Sodium Lauryl Sulfate (Phisoderm) 240 ml PRN PRN TOP PERINEAL AREA DISCOMFORT 12/17/24 19:15 Terbutaline Sulfate (Brethine Inj) 0.25 mg ONCE PRN SC Uterine tachysystole 12/17/24 20:00 Witch Sanam (Tucks) 1 pad PRN PRN TOP PERINEAL AREA DISCOMFORT 12/17/24 19:15 Others ve-1cm/50/-2 post Studies Laboratory Tests 12/17/24 19:20 Test 12/17/24 19:20 Range/Units Serum Glucose 110 H 74-106 mg/dL Ass/Plan Assessment iol forterm and arrhythmia Plan rec 3rd cytotec supportive care Visit Coding OBGYN Date of Service: Dec 18, 2024 Billing Provider: GUNNER MICHEL DO ACCOUNT AUDITOR Common Visit Codes: [id number] INP/OBS CARE(HIGH) ACCOUNT AUDITOR Procedure Codes: 41256-19- NON-STRESS TEST GUNNER MICHEL DO Dec 18, 2024 10:26
--- NOTE | 2024-12-18 16:17 | DVHPN2 ---
CNM Labor Progress Note Date and Time Seen Date Seen: Dec 18, 2024 Time Seen: 15:39 Subjective Patient reports: No new complaints Subjective Comment Pt resting comfortably in bed Objective Vital Signs VSS, see chart Monitoring Method Monitoring Method: External Heart Rate Heart Rate Baseline: 130 Heart Rate Variability: Moderate Presence of FHR Accelerations: Yes Presence of FHR Decelerations: No Are all 5 Components of the FH: Yes Contractions Contractions Frequency: Other (Q 2-3 min) Duration of Contraction: 80 Contractions Intensity: Moderate Contractions Resting Tone: Relaxed Membranes Membranes: Ruptured (AROM) Amniotic Fluid Color: Clear Vaginal Exam Vag Exam Deferred: No Vaginal Exam Dilation: 5 Vaginal Exam Effacement: 70 Vaginal Exam Station: -2 Vaginal Exam Presentation: VTX Vaginal Exam Show: Small Medications Medications - Pitocin: Yes (16mu) Medications - Pain Medications: PRN Medication - Epidural: No Lab Results Lab Results Current Medications Medications (Trade) Dose Ordered Sig/Amrik Start Time Stop Time Status Last Admin Dose Admin Lactated Ringer's 1,000 ml @ 125 mls/hr Q8H 12/17/24 19:15 12/18/24 19:39 125 MLS/HR Nalbuphine HCl (Nubain) 10 mg Q4HP PRN 12/17/24 19:15 Witch Sanam (Tucks) 1 pad PRN PRN 12/17/24 19:15 12/18/24 19:41 1 PAD Sodium Lauryl Sulfate (Phisoderm) 240 ml PRN PRN 12/17/24 19:15 12/18/24 19:42 240 ML Benzocaine (Dermoplast) 1 applic PRN PRN 12/17/24 19:15 12/18/24 19:41 1 APPLIC Misoprostol (Cytotec) 50 mcg Q4HPRN PRN 12/17/24 19:15 Lidocaine HCl (Xylocaine) 20 ml ONCE PRN 12/17/24 19:15 Oxytocin 1,000 ml @ 6 ml/hr Q24H 12/17/24 20:00 12/17/24 21:42 6 ML/HR Terbutaline Sulfate (Brethine Inj) 0.25 mg ONCE PRN 12/17/24 20:00 Oxytocin 500 ml @ 999 mls/hr Q31M ONCE 12/17/24 20:00 12/17/24 20:30 DC Oxytocin 500 ml @ 125 mls/hr Q4H ONCE 12/17/24 20:30 12/18/24 00:29 DC Naloxone HCl (Narcan) 0.2 mg PRN ONCE 12/18/24 16:30 12/18/24 16:31 DC Ephedrine Sulfate (ePHEDrine SULFATE) 10 mg PRN ONCE 12/18/24 16:30 12/18/24 16:31 DC Lactated Ringer's 1,000 ml @ 1,000 mls/hr Q1H ONCE 12/18/24 16:30 12/18/24 17:29 DC 12/18/24 17:53 1,000 MLS/HR Methylergonovine Maleate (Methergine) 0.2 mg ONCE ONCE 12/18/24 19:00 12/18/24 19:01 DC Calcium Carbonate (Tums) 1,000 mg ONCE ONCE 12/18/24 19:15 12/18/24 19:31 DC 12/18/24 19:38 1,000 MG Laboratory Tests Test 12/18/24 08:32 12/17/24 19:20 Range/Units Uric Acid 5.3 3.1-7.8 mg/dL White Blood Count 10.7 4.4-10.8 10^3/uL Red Blood Count 4.33 4.0-5.20 10^6/uL Hemoglobin 12.3 12.2-16.2 g/dL Hematocrit 36.7 36.0-46.0 % Mean Corpuscular Volume 84.6 80.0-100.0 fL Mean Corpuscular Hemoglobin 28.5 28.0-32.0 pg Mean Corpuscular Hemoglobin Concent 33.7 32.0-36.0 g/dL Red Cell Distribution Width 15.7 H 11.8-14.3 % Platelet Count 205 140-450 10^3/uL Mean Platelet Volume 7.9 6.9-10.8 fL Neutrophils (%) (Auto) 79.2 37.0-80.0 % Lymphocytes (%) (Auto) 14.0 10.0-50.0 % Monocytes (%) (Auto) 6.1 0.0-12.0 % Eosinophils (%) (Auto) 0.5 0.0-7.0 % Basophils (%) (Auto) 0.2 0.0-2.0 % Neutrophils # (Auto) 8.5 1.6-8.6 10 ^3/uL Lymphocytes # (Auto) 1.5 0.4-5.4 10 ^3/uL Monocytes # (Auto) 0.7 0-1.3 10 ^3/uL Eosinophils # (Auto) 0.1 0-0.8 10 ^3/uL Basophils # (Auto) 0 0-0.2 10 ^3/uL Nucleated Red Blood Cells 0.0 % Prothrombin Time 10.1 9.3-11.8 sec Prothrombin Time INR 0.95 0.9-1.15 Activated Partial Thromboplast Time 27.3 24.5-34.5 SEC Urine Color Yellow Yellow Urine Clarity Turbid H Clear Urine pH 6.5 5.0-9.0 Urine Specific [place] 1.020 1.001-1.035 Urine Protein Trace H Negative Urine Ketones Negative Negative Urine Blood Negative Negative /uL Urine Nitrite Negative Negative Urine Bilirubin Negative Negative Urine Urobilinogen Normal Negative mg/dL Urine Leukocyte Esterase 1+ Negative /uL Urine RBC 2 0 - 4 /hpf Urine Microscopic WBC 3 0-5 /HPF Urine Squamous Epithelial Cells Few <5 /hpf Urine Calcium Oxalate Crystals Few None Seen Urine Bacteria Few H None Seen /hpf Urine Mucus Few None Seen Urine Creatinine 116.75 30.0-125.0 mg/dL Urine Protein/Creatinine Ratio 0.23 Urine Glucose Normal Normal mg/dL Urine Total Protein 27.2 H 1-14 mg/dL Sodium Level 141 136-145 mmol/L Potassium Level 3.6 3.5-5.1 mmol/L Chloride Level 108 H 98-107 mmol/L Carbon Dioxide Level 20 20-31 mmol/L Anion Gap 13 5-15 Blood Urea Nitrogen 8 L 9-23 mg/dL Creatinine 0.60 0.550-1.02 mg/dL Glomerular Filtration Rate Calc 126 >90 mL/min BUN/Creatinine Ratio 13.3 10.0-20.0 Serum Glucose 110 H 74-106 mg/dL Calcium Level 10.5 H 8.7-10.4 mg/dL Total Bilirubin 0.4 0.2-1.0 mg/dL Aspartate Amino Transferase (AST) 21 13-40 U/L Alanine Aminotransferase (ALT) 18 7-40 U/L Alkaline Phosphatase 194 H 46-116 U/L Total Protein 6.6 5.7-8.2 g/dL Albumin 4.2 3.2-4.8 g/dL Urine Opiates Screen Neg NEGATIVE Urine Fentanyl Screen Neg NEGATIVE Urine Barbiturates Screen Neg NEGATIVE Urine Phencyclidine Screen Neg NEGATIVE Urine Amphetamines Screen Neg NEGATIVE Urine Benzodiazepines Screen Neg NEGATIVE Urine Cocaine Screen Neg NEGATIVE Urine Cannabinoids Screen Neg NEGATIVE Treponema pallidum Antibody Non-reactive Negative Hepatitis B Surface Antigen Negative Negative Hepatitis C Antibody Negative Negative Assessment Assessment 29yo IUP@40.2wks Induction of Labor arrhythmia Category I EFM AROM, clear GBS negative Plan Plan Continue with IV Pitocin per protocol monitoring per order Pain management PRN Frequent position changes in and out of bed encouraged Limit SVE unless necessary Anticipate CNM will consult with Dr Soriano PRN Plan discussed with: Patient, Other (Partner) Visit Coding OBGYN Date of Service: Dec 18, 2024 Billing Provider: AVILA BRUCE CNM INSPECTOR PAWNSHOP DETAIL Common Visit Codes: [id number] INP/OBS CARE(HIGH) ARLEEN TOPETE STUDENTMDW Dec 18, 2024 16:17
[2024-12-18] MEDS: NALOXONE HCL 0.4 MG/ML VIAL IV ONE (16:30)
[2024-12-18] MEDS: ePHEDrine SULFATE 50 MG/ML AMP IV ONE (16:30)
[2024-12-18] MEDS: LACTATED RINGER'S 1,000 ML IV ONE (17:53)
[2024-12-18] MEDS: ROPIVACAINE HCL 200 ML ONE (17:57)
[2024-12-18] MEDS: CALCIUM CARB 500 MG CHEW TAB PO ONE (19:38)
[2024-12-18] MEDS: WITCH HAZEL-GLYCERIN PAD TOP PRN (19:41)
[2024-12-18] MEDS: DERMOPLAST 60ML BOTTLE TOP PRN (19:41)
[2024-12-18] MEDS: PHISODERM TOP SOLN 240ML BTL TOP PRN (19:42)
--- NOTE | 2024-12-18 22:36 | DVHPN2 ---
CNM Labor Progress Note Date and Time Seen Date Seen: Dec 18, 2024 Time Seen: 22:30 Subjective Subjective Comment Pt feeling vaginal pressure and shaking Objective Vital Signs VSS, see chart Monitoring Method Monitoring Method: External Heart Rate Heart Rate Baseline: 140 Heart Rate Variability: Moderate Presence of FHR Accelerations: Yes Presence of FHR Decelerations: No Are all 5 Components of the FH: Yes Contractions Contractions Frequency: Other (Q 2-4 min) Duration of Contraction: 120 Contractions Intensity: Moderate Contractions Resting Tone: Relaxed Membranes Membranes: Ruptured Amniotic Fluid Color: Clear Vaginal Exam Vag Exam Deferred: No (9.5/100/-1) Vaginal Exam Presentation: VTX Medications Medications - Pitocin: Yes Medication - Epidural: Yes Lab Results Lab Results Current Medications Medications (Trade) Dose Ordered Sig/Amrik Start Time Stop Time Status Last Admin Dose Admin Lactated Ringer's 1,000 ml @ 125 mls/hr Q8H 12/17/24 19:15 12/18/24 19:39 125 MLS/HR Nalbuphine HCl (Nubain) 10 mg Q4HP PRN 12/17/24 19:15 Witch Sanam (Tucks) 1 pad PRN PRN 12/17/24 19:15 12/18/24 19:41 1 PAD Sodium Lauryl Sulfate (Phisoderm) 240 ml PRN PRN 12/17/24 19:15 12/18/24 19:42 240 ML Benzocaine (Dermoplast) 1 applic PRN PRN 12/17/24 19:15 12/18/24 19:41 1 APPLIC Misoprostol (Cytotec) 50 mcg Q4HPRN PRN 12/17/24 19:15 Lidocaine HCl (Xylocaine) 20 ml ONCE PRN 12/17/24 19:15 Oxytocin 1,000 ml @ 6 ml/hr Q24H 12/17/24 20:00 12/17/24 21:42 6 ML/HR Terbutaline Sulfate (Brethine Inj) 0.25 mg ONCE PRN 12/17/24 20:00 Oxytocin 500 ml @ 999 mls/hr Q31M ONCE 12/17/24 20:00 12/17/24 20:30 DC Oxytocin 500 ml @ 125 mls/hr Q4H ONCE 12/17/24 20:30 12/18/24 00:29 DC Naloxone HCl (Narcan) 0.2 mg PRN ONCE 12/18/24 16:30 12/18/24 16:31 DC Ephedrine Sulfate (ePHEDrine SULFATE) 10 mg PRN ONCE 12/18/24 16:30 12/18/24 16:31 DC Lactated Ringer's 1,000 ml @ 1,000 mls/hr Q1H ONCE 12/18/24 16:30 12/18/24 17:29 DC 12/18/24 17:53 1,000 MLS/HR Methylergonovine Maleate (Methergine) 0.2 mg ONCE ONCE 12/18/24 19:00 12/18/24 19:01 DC Calcium Carbonate (Tums) 1,000 mg ONCE ONCE 12/18/24 19:15 12/18/24 19:31 DC 12/18/24 19:38 1,000 MG Laboratory Tests Test 12/18/24 08:32 12/17/24 19:20 Range/Units Uric Acid 5.3 3.1-7.8 mg/dL White Blood Count 10.7 4.4-10.8 10^3/uL Red Blood Count 4.33 4.0-5.20 10^6/uL Hemoglobin 12.3 12.2-16.2 g/dL Hematocrit 36.7 36.0-46.0 % Mean Corpuscular Volume 84.6 80.0-100.0 fL Mean Corpuscular Hemoglobin 28.5 28.0-32.0 pg Mean Corpuscular Hemoglobin Concent 33.7 32.0-36.0 g/dL Red Cell Distribution Width 15.7 H 11.8-14.3 % Platelet Count 205 140-450 10^3/uL Mean Platelet Volume 7.9 6.9-10.8 fL Neutrophils (%) (Auto) 79.2 37.0-80.0 % Lymphocytes (%) (Auto) 14.0 10.0-50.0 % Monocytes (%) (Auto) 6.1 0.0-12.0 % Eosinophils (%) (Auto) 0.5 0.0-7.0 % Basophils (%) (Auto) 0.2 0.0-2.0 % Neutrophils # (Auto) 8.5 1.6-8.6 10 ^3/uL Lymphocytes # (Auto) 1.5 0.4-5.4 10 ^3/uL Monocytes # (Auto) 0.7 0-1.3 10 ^3/uL Eosinophils # (Auto) 0.1 0-0.8 10 ^3/uL Basophils # (Auto) 0 0-0.2 10 ^3/uL Nucleated Red Blood Cells 0.0 % Prothrombin Time 10.1 9.3-11.8 sec Prothrombin Time INR 0.95 0.9-1.15 Activated Partial Thromboplast Time 27.3 24.5-34.5 SEC Urine Color Yellow Yellow Urine Clarity Turbid H Clear Urine pH 6.5 5.0-9.0 Urine Specific [place] 1.020 1.001-1.035 Urine Protein Trace H Negative Urine Ketones Negative Negative Urine Blood Negative Negative /uL Urine Nitrite Negative Negative Urine Bilirubin Negative Negative Urine Urobilinogen Normal Negative mg/dL Urine Leukocyte Esterase 1+ Negative /uL Urine RBC 2 0 - 4 /hpf Urine Microscopic WBC 3 0-5 /HPF Urine Squamous Epithelial Cells Few <5 /hpf Urine Calcium Oxalate Crystals Few None Seen Urine Bacteria Few H None Seen /hpf Urine Mucus Few None Seen Urine Creatinine 116.75 30.0-125.0 mg/dL Urine Protein/Creatinine Ratio 0.23 Urine Glucose Normal Normal mg/dL Urine Total Protein 27.2 H 1-14 mg/dL Sodium Level 141 136-145 mmol/L Potassium Level 3.6 3.5-5.1 mmol/L Chloride Level 108 H 98-107 mmol/L Carbon Dioxide Level 20 20-31 mmol/L Anion Gap 13 5-15 Blood Urea Nitrogen 8 L 9-23 mg/dL Creatinine 0.60 0.550-1.02 mg/dL Glomerular Filtration Rate Calc 126 >90 mL/min BUN/Creatinine Ratio 13.3 10.0-20.0 Serum Glucose 110 H 74-106 mg/dL Calcium Level 10.5 H 8.7-10.4 mg/dL Total Bilirubin 0.4 0.2-1.0 mg/dL Aspartate Amino Transferase (AST) 21 13-40 U/L Alanine Aminotransferase (ALT) 18 7-40 U/L Alkaline Phosphatase 194 H 46-116 U/L Total Protein 6.6 5.7-8.2 g/dL Albumin 4.2 3.2-4.8 g/dL Urine Opiates Screen Neg NEGATIVE Urine Fentanyl Screen Neg NEGATIVE Urine Barbiturates Screen Neg NEGATIVE Urine Phencyclidine Screen Neg NEGATIVE Urine Amphetamines Screen Neg NEGATIVE Urine Benzodiazepines Screen Neg NEGATIVE Urine Cocaine Screen Neg NEGATIVE Urine Cannabinoids Screen Neg NEGATIVE Treponema pallidum Antibody Non-reactive Negative Hepatitis B Surface Antigen Negative Negative Hepatitis C Antibody Negative Negative Assessment Assessment 29yo IUP@40.2wks Induction of Labor arrhythmia Category I EFM AROM, clear GBS negative Plan Plan Continue with IV Pitocin per protocol monitoring per order Epidural in place Frequent position changes in bed encouraged Limit SVE unless necessary Anticipate CNM will consult with Dr Soriano PRN Plan discussed with: Patient, Other (Partner) Visit Coding OBGYN Date of Service: Dec 18, 2024 Billing Provider: AVILA BRUCE CNM SENIOR FRONT END ENGINEER Common Visit Codes: [id number] INP/OBS CARE(HIGH) ARLEEN TOPETE STUDENTMDW Dec 18, 2024 22:36
[2024-12-19] VITALS (7 sets, daily range): BP systolic 91–101; BP diastolic 46–54; PULSE 86–95; RESP 16–18; TEMP 97.7–99; O2SAT 96–98
[2024-12-19] MEDS: AMPICILLIN SOD 2GM INJ 2 GM in SODIUM CHL 0.9% 100 ML IV SCH (00:03)
[2024-12-19] MEDS: AMPICILLIN SOD 1 GM VL ONE (00:04)
[2024-12-19] MEDS: ACETAMINOPHEN 500 MG TAB or CAP PO STA (00:06)
[2024-12-19] MEDS: ONDANSETRON HCL 4 MG/2 ML VIAL IV PRN (00:11)
[2024-12-19] MEDS ORDERED: GENTAMICIN SULFATE 400 MG in D5W 5% 100 ML IV ONE (00:15)
[2024-12-19] MEDS: MINERAL OIL TOPICAL 10ml TOP ONE ×2 (00:30→00:33)
[2024-12-19] MEDS ORDERED: GENTAMICIN PER PHARMACY 0 ML IV SCH ×2 (00:30→09:00)
[2024-12-19] MEDS: GENTAMICIN SULFATE 4 ML ONE (01:03)
[2024-12-19] MEDS: LIDOCAINE 2%HCL (LOCAL ANESTH.) INJ 10ml MDV ONE (03:23)
[2024-12-19] MEDS: LACT. RINGERS/OXYTOCIN 20UNITS 500 ML IV ONE ×2 (04:32→04:34)
[2024-12-19] MEDS: METHYLERGONOVINE MALEATE 0.2 MG/ML AMP IM ONE (04:36)
[2024-12-19] MEDS: CARBOPROST TROMETHAMINE 250 MCG/1ML VIAL IM ONE (04:38)
[2024-12-19] MEDS: GENTAMICIN SULFATE 120 MG in D5W 5% 100 ML IV ONE (04:41)
[2024-12-19] MEDS: LIDOCAINE 2%HCL (LOCAL ANESTH.) INJ 20ML MDV ONE (04:44)
[2024-12-19] MEDS: DIPHENOXYLATE W/ATROPINE 2.5 MG TAB PO ONE (04:47)
[2024-12-19] MEDS: LIDOCAINE 2%HCL (LOCAL ANESTH.) INJ 20ML MDV IJ PRN (04:59)
--- NOTE | 2024-12-19 05:32 | LDN2 ---
Labor and Delivery Note Date 12/19/24 Age 29 1 Para now, 1 AB 0 EDC 12/16/2024 EGA 40.3 wks Diagnosis IOL for term and arrhythmia, chorioamnionitis then Vaginal Delivery: VTX Vacuum Assisted: No Placenta: Spontaneous Sex: Male Weight 3855g Apgars 8/9 Nuchal Cord Transected: No Amniotic Fluid: Clear Anesthesia Epidural and local Episiotomy: No Extension: No Repaired with 3.[address] and SH EBL QBL 1200 mL Labs Laboratory Tests 12/17/24 19:20: Hepatitis B Surface Antigen Negative Blood Bank 12/17/24 19:20: Blood Type O POSITIVE Complications Chorioamnionitis and PPH Conditions stable Buffing Machine Operator Semiautomatic Somu Comments/Significant Med Lazaro TXA 1g IVPB given within 30 minutes prior to At 0324 this 29yo now delivered a viable Male by w/ APGARS 8/9. Direct OA presentation. Infant placed skin to skin on pts chest. RT at bedside during . Cord clamped and cut after pulsation ceased. Pitocin IV bolus started. Cord gases collected. Venous pH 7.364. Cord blood sent. Second degree perineal laceration present that is briskly bleeding, repair started with 3-0 vicryl sutures to stop bleeding. Intact 3-vessel cord placenta delivered spontaneously, Gómez. Fundus at U, boggy, midline, and moderate lochia. Manual sweep done and all clots cleared from uterus/cervix. IM Methergine, IM Hemabate x1, lomotil PO and Cytotec 800mcg rectally given. Pt taking placenta home. Pt instructed not to encapsulate placenta and ingest it due to chorioamnionitis infection. Pt instructed to plant a tree with it only. Patient had epidural and local anesthesia. Cervix/vagina inspected (intact); bilateral labial and second degree perineal lacerations present which were repaired with 3-0 vicryl sutures. Straight catheter done with urine 300ml expelled and kept in place during labial repair. Rectal mucosa and sphincter intact. Rectal exam performed, WNL, not involved. Second dose TXA 1g IVPB given 30 minutes after first dose. Pt reported feeling weak and tight chest. VSS, oxygen administered, and EKG performed at bedside, normal sinus rhythm. Stat CBC and coag panel ordered. Continue IV Amp and IV Gent for 24 hours. Fundus at U, firm, midline, and light lochia. QBL 1200ml. VSS. Count correct x2. Patient to care and baby to couplet care, both stable. Visit Coding OBGYN Date of Service: Dec 19, 2024 Billing Provider: AVILA BRUCE CNM CUSTOMS BROKERAGE MANAGER Common Visit Codes: PROCEDURE ONLY CUSTOMS BROKERAGE MANAGER Procedure Codes: [id number] DEL INCLUDING ARLEEN TOPETE STUDENTMDW Dec 19, 2024 05:32
[2024-12-19] MEDS: IBUPROFEN 600 MG TAB PO PRN (05:53)
[2024-12-19 06:20] LABS: Basophils # (auto) 0 10 ^3/uL (0-0.2); Basophils % (auto) 0.1 % (0.0-2.0); Eosinophils # (auto) 0 10 ^3/uL (0-0.8); Hematocrit 30.9 % (36.0-46.0); Hemoglobin 10.6 g/dL (12.2-16.2); Lymphocytes # (auto) 0.6 10 ^3/uL (0.4-5.4); Mean Corpuscular Hemoglobin 29.1 pg (28.0-32.0); Mean Corpuscular Hgb Conc. 34.4 g/dL (32.0-36.0); Mean Corpuscular Volume 84.5 fL (80.0-100.0); Monocytes # (auto) 1.6 10 ^3/uL (0-1.3); Monocytes % (auto) 7.8 % (0.0-12.0); Neutrophils % (auto) 89.1 % (37.0-80.0); Platelet Count (auto) 149 10^3/uL (140-450); Red Blood Cells 3.66 10^6/uL (4.0-5.20); Red Cell Distribution Width 16.1 % (11.8-14.3); White Blood Cell 20.2 10^3/uL (4.4-10.8)
[2024-12-19 06:41] LABS: INR 0.99 (0.9-1.15); Partial Thromboplastin Time 30.2 SEC (24.5-34.5); Prothrombin Time 10.5 sec (9.3-11.8)
[2024-12-19] MEDS: ACETAMINOPHEN 325 MG TAB PO PRN (06:53)
[2024-12-19] MEDS ORDERED: DOCUSATE SOD 100 MG CAP PO PRN (07:00)
[2024-12-19] MEDS ORDERED: GENTAMICIN SULFATE 80 MG in D5W 5% 100 ML IV SCH (09:00)
[2024-12-19] MEDS: PRENATAL VITAMIN TAB PO SCH (10:32)
[2024-12-19] MEDS ORDERED: miSOPROStol 100 mcg TAB PO ONE (13:15)
[2024-12-19] MEDS: GENTAMICIN SULFATE 320 MG in D5W 5% 100 ML IV SCH (14:28)
[2024-12-20 03:00] VITALS: BP 91/51; PULSE 82; RESP 18; TEMP 97.8; O2SAT 99
[2024-12-20 06:58] VITALS: BP 97/55; PULSE 79; RESP 18; TEMP 98.3; O2SAT 97
--- NOTE | 2024-12-20 09:57 | DVHPN2 ---
Chief Complaints Patient reports: No new complaints Nursing reports: No new complaints Objective Vitals Vital Signs Date Time Temp Pulse Resp B/P (MAP) Pulse Ox O2 Delivery O2 Flow Rate FiO2 12/20/24 07:02 Room Air 12/20/24 06:58 98.3 79 18 97/55 (69) 97 98.3 Medications Current Medications Medications (Trade) Dose Ordered Sig/Amrik Route PRN Reason Start Time Stop Time Status Last Admin Gentamicin Sulfate 320 mg/ Dextrose 108 ml @ 103.349 mls/hr DAILY@1400 IV 12/19/24 14:00 12/19/24 14:28 Prenat Multivit/ Blender Conveyor Operator/Iron/Folic Ac (Prenavite Tablet) 1 DAILY PO 12/19/24 10:00 12/19/24 10:32 General: Normal Lungs: Normal Cardiovascular: Normal Abdominal: Soft Extremities: Normal Studies Laboratory Tests 12/19/24 05:46 12/17/24 19:20 Test 12/17/24 19:20 Range/Units Serum Glucose 110 H 74-106 mg/dL Ass/Plan Assessment s/p Plan dc home fu in 2wks Visit Coding OBGYN Date of Service: Dec 20, 2024 Billing Provider: GUNNER MICHEL DO SHIP LINER Common Visit Codes: [id number] OBS CARE (HIGH) SHIP LINER Procedure Codes: 41162-09- NON-STRESS TEST GUNNER MICHEL DO Dec 20, 2024 09:57
--- NOTE | 2024-12-20 09:59 | DVHDS2 ---
Obstetrics Discharge Summary Obstetrics Discharge Summary Date of Admission: Dec 17, 2024 Date of Discharge: Dec 20, 2024 Reason For Admission: Induction of Labor Procedures: NST Intrapartum Procedures: Spontaneous vaginal deliv Procedures: None Operative Complicat: None Discharge Diagnosis: Term -Delivered Discharge Information: Activity (Other), Diet (Routine), Medications (None), Instructions (Routine), Discharge to (Home), Discarge date (12-20) Visit Coding OBGYN Date of Service: Dec 20, 2024 Billing Provider: GUNNRE MICHEL DO CHARTER PILOT Common Visit Codes: [id number] OBS CARE (HIGH) CHARTER PILOT Procedure Codes: 07092-39- NON-STRESS TEST GUNNER MICHEL DO Dec 20, 2024 09:59
--- NOTE | 2024-12-25 07:12 | ECG ---
[facility] Test Date: 2024-12-19 Test Time: 04:11:39 Pat Name: YONI LOPEZ Department: Room: [facility] A Gender: F Heavy Duty Custodian: Amanda HENDRIX : 1995 Requested By: AVILA BRUCE Order Number: [id number] Reading MD: Catarino Dominguez Measurements Intervals [place] Rate: 81 P: 51 [place]: 142 QRS: 41 QRSD: 84 T: 15 QT: 356 QTc: 413 Interpretive Statements Normal sinus rhythm Electronically Signed On 12-25-2024 20:12:11 PDT by Catarino Dominguez Please click the below link to view image of tracing.
== END 2024-12-20 09:00 | disposition home or self-care (01) | DRG 560 ==
LOC: LDRP 18:30
PROVIDERS: ADMIT Nurse Practitioner Women's Health; ATTEND Obstetrics & Gynecology
PROC: 10E0XZZ Delivery of Products of Conception, External Approach (ICD-10-PCS; principal; 2024-12-19)
PROC: 3E0R33Z Introduction of Anti-inflammatory into Spinal Canal, Percutaneous Approach (ICD-10-PCS; 2024-12-19)
PROC: 10E0XZZ Delivery of Products of Conception, External Approach (ICD-10-PCS; 2024-12-19)
PROC: 0KQM0ZZ Repair Perineum Muscle, Open Approach (ICD-10-PCS; 2024-12-19)
DX: O48.0 Post-term pregnancy (principal); Z37.0 Single live birth; O41.1230 Chorioamnionitis, third trimester, not applicable or unspecified; R71.0 Precipitous drop in hematocrit; O76 Abnormality in fetal heart rate and rhythm complicating labor and delivery; O70.1 Second degree perineal laceration during delivery; Z3A.40 40 weeks gestation of pregnancy
CPT/HCPCS: 36415; 59025; 59409; 62282; 80053; 80170; 80307; 81001; 81002; 82570; 84156; 84550; 85025; 85610; 85730; 86780; 86803; 86850; 86900; 86901; 87340; 93005; 94760; 94762; 96360; 96361; 96365; 96366; 96372; G0378; J2003; J2405; J2590; J7060